=== PATIENT | male | born 1950 | race Caucasian/White ===

== ENCOUNTER 2018-11-14 06:38 | Day surgery (SDC) | payer MEDICARE, BC ==
[2018-11-14] MEDS ORDERED: Midazolam 1 MG/ML 2 ML SDV IV ONE (06:39)
[2018-11-14] MEDS ORDERED: Propofol 200 MG/20 ML SDV IV ONE (06:39)
[2018-11-14] MEDS ORDERED: Lactated Ringers 1,000 ML IV SCH (06:45)
--- NOTE | 2018-11-14 08:06 | PCM.OPNOTE ---
- General Post-Op/Procedure Note Date of Surgery/Procedure: 11/14/18 Operative Procedure(s): c scope Findings: diverticulosis Pre Op Diagnosis: hx of colon polyps Post-Op Diagnosis: diverticulosis Anesthesia Technique: MAC Primary Surgeon: Collin Aguilera Anesthesia Provider: Pam Hughes Pathology: none Complications: None Condition: Good Free Text/Narrative:: see dictation
--- NOTE | 2018-11-14 09:46 | OR ---
DATE OF OPERATION: 11/14/2018 SURGEON: Collin Aguilera MD PROCEDURE PERFORMED: Colonoscopy. PREOPERATIVE DIAGNOSIS: Personal history of colon polyps. POSTOPERATIVE DIAGNOSIS: Diverticulosis. INDICATIONS FOR PROCEDURE: This is a 68-year-old white male, who has a personal history of colon polyps. He was offered and accepted a followup colonoscopy. DESCRIPTION OF OPERATION: After an excellent IV sedation was administered, digital rectal exam was performed. No marked abnormality was noted. Flexible colonoscope was inserted and advanced to the cecum. Prep was excellent. Following findings were noted. Ascending colon, unremarkable. Transverse colon, notable for single diverticulum in the middle of the transverse colon, otherwise unremarkable. The descending colon was unremarkable. The sigmoid colon had mild diverticulosis. The rectum and anus were unremarkable. RECOMMENDATIONS: Repeat colonoscopy in 10 years. /[id number] /MODL
== END 2018-11-14 08:42 | disposition home or self-care (01) ==
LOC: FB.SDS 06:38
PROVIDERS: ATTEND Surgery
DX: Z12.11 Encounter for screening for malignant neoplasm of colon (principal); K57.30 Diverticulosis of large intestine without perforation or abscess without bleeding; E78.00 Pure hypercholesterolemia, unspecified; Z87.891 Personal history of nicotine dependence; Z86.010 Personal history of colon polyps; Z79.899 Other long term (current) drug therapy
CPT/HCPCS: 00811-QZ; J2250; J2704; J7120